=== PATIENT | male | born 1985 ===

== ENCOUNTER 2024-02-23 06:10 | Day surgery (SDC) | payer OTHER ==
[2024-02-17 13:20] VITALS: BP 132/86
[~2024-02-23] VITALS: Ht 182.9 cm; Wt 113.4 kg
[2024-02-23] MEDS ORDERED: CEFAZOLIN SODIUM 1,000 MG VIAL ONE ×2 (10:14→13:11)
[2024-02-23] MEDS ORDERED: LIDOCAINE HCL 1% 20 ML VIAL IJ ONE (11:10)
[2024-02-23] MEDS ORDERED: LIDOCAINE HCL 1%/EPINEPHRINE 20ML VIAL IJ ONE (11:10)
[2024-02-23] MEDS ORDERED: CEFAZOLIN SODIUM 1,000 MG VIAL IV SCH (12:45)
[2024-02-23] MEDS ORDERED: FAMOTIDINE/PF 20 MG/10 ML SYRINGE IV SCH (12:45)
[2024-02-23] MEDS ORDERED: FAMOTIDINE/PF 20 MG/2 ML VIAL ONE (13:11)
== END 2024-02-23 14:05 | disposition home or self-care (01) ==
LOC: CIR.AMB 06:10
PROVIDERS: ATTEND Specialist
DX: D21.21 Benign neoplasm of connective and other soft tissue of right lower limb, including hip (principal); Q27.9 Congenital malformation of peripheral vascular system, unspecified